=== PATIENT | male | born 1940 | race Caucasian/White ===

== ENCOUNTER 2020-10-04 17:31 | Inpatient (IN) | payer OTHER ==
[~2020-10-04] VITALS: Ht 172.7 cm; Wt 86.2 kg
[2020-10-04 17:41] VITALS: BP 143/83
[2020-10-04 19:00] LABS: BASOPHILS 0.1 % (0.0-2.0); HEMATOCRIT 45.4 % (42.0-52.0); HEMOGLOBIN 15.5 gm/dL (14.0-18.0); LYMPHOCYTES 5.2 % (24.0-44.0); MCH 33.5 pg (26.0-34.0); MCHC 34.1 g/dL (28.0-37.0); MCV 98.5 fL (80.0-100.0); PLATELET COUNT 360 thou/uL (150-400); POLYS 84.7 % (36.0-66.0); RBC 4.61 mil/uL (4.50-6.00); RDW 12.9 % (10.5-14.5); WBC 16.5 thou/uL (4.0-11.0)
[2020-10-04 19:15] LABS: CALCIUM 9.7 mg/dL (8.5-10.1)
[2020-10-04 19:21] LABS: ALBUMIN 3.8 g/dL (3.4-5.0); TOTAL BILIRUBIN 0.5 mg/dL (0.2-1.0); TOTAL PROTEIN 8.6 g/dL (6.4-8.2)
[2020-10-04 21:18] LABS: URINE BILIRUBIN NEGATIVE (Negative); URINE BLOOD NEGATIVE (Negative); URINE CLARITY CLEAR; URINE COLOR YELLOW; URINE GLUCOSE-RANDOM* NEGATIVE (Negative); URINE KETONES NEGATIVE (Negative); URINE LEUKOCYTES-REFLEX NEGATIVE (Negative); URINE NITRITE-REFLEX NEGATIVE (Negative); URINE PROTEIN (DIPSTICK) 1+ (Negative); URINE SPECIFIC GRAVITY 1.025 (1.005-1.035)
[2020-10-04 21:35] LABS: BACTERIA-REFLEX None Seen /HPF (None Seen); CRYSTALS None Seen /LPF (None Seen); HYALINE CASTS 0-3 Few /LPF (None Seen); MUCUS 0-3 Light strn/LPF (None Seen); SQUAMOUS None Seen /LPF (0-3); URINE RBC None Seen /HPF (0-2); URINE WBC-REFLEX None Seen /HPF (0-5)
[2020-10-04 22:08] VITALS: BP 112/64
[2020-10-05 00:08] VITALS: BP 128/74
--- NOTE | 2020-10-05 02:26 | NUR ---
PT REFUSED SCD'S TO BE APPLIED BECAUSE THE HAS NOT SLEPT IN TWO DAYS AND DOES NOT WANT ANYTHING THAT COULD CONTRIBUTE TO HIM NOT BEING ABLE TO SLEEP.
[2020-10-05 08:08] VITALS: BP 100/50
[2020-10-05 08:58] VITALS: BP 100/50
[2020-10-05] MEDS ORDERED: CIPRO500 M1 PO (09:37)
[2020-10-05] MEDS ORDERED: BACTRIM DS TAB1 EAC1 PO (09:38)
[2020-10-05] MEDS ORDERED: KEFLEX500 M1 PO (09:38)
[2020-10-05] MEDS ORDERED: PREDNISONE 5 MG5 MG PO (09:39)
[2020-10-05] MEDS ORDERED: NORVASC 2.5 MG2.5 M1 PO (09:40)
[2020-10-05] MEDS ORDERED: KLOR-CON 10 ER10 MEQ PO (09:40)
[2020-10-05] MEDS ORDERED: PRINIVIL20 M1 PO (09:41)
[2020-10-05] MEDS ORDERED: FLUDROCORTISON0.1 MG PO (09:42)
[2020-10-05] MEDS ORDERED: ALLOPURINOL 10100 M3 PO (09:42)
[2020-10-05] MEDS ORDERED: ZETIA10 MG PO (09:42)
[2020-10-05] MEDS ORDERED: HYDROCHLOROTHIA25 M2 PO (09:43)
[2020-10-05 11:26] VITALS: BP 114/70
[2020-10-05 15:17] VITALS: BP 117/69
--- NOTE | 2020-10-05 17:55 | NUR ---
ASSUMED CARE OF PT ON ARRIVAL TO UNIT. PT ALERT ADN ORIENTED, IN NO ACUTE DISTRESS. REPORTS BILAT LOWER EXT WEKANESS. UP W/ SBA. CALLS APPROPRIATELY. GOOD APPETITE. ROOM AIR. TEMP IMPROVED WITH TYLENOL. COMPLAINS OF PAIN TO BACK AND CHEST FROM FREQUENT COUGHING FITS. ID CONSULTED. WCM.
[2020-10-05 19:07] LABS: ABSOLUTE NEUTROPHILS 9.4 thou/uL (1.4-8.2); WBC 10.4 thou/uL (4.0-11.0)
[2020-10-05 19:10] LABS: BASOPHILS 0.1 % (0.0-2.0); HEMATOCRIT 42.4 % (42.0-52.0); HEMOGLOBIN 14.3 gm/dL (14.0-18.0); MCH 33.3 pg (26.0-34.0); MCHC 33.8 g/dL (28.0-37.0); MCV 98.7 fL (80.0-100.0); MONOCYTES 5.5 % (1.0-8.0); PLATELET COUNT 322 thou/uL (150-400); POLYS 90.4 % (36.0-66.0); RDW 13.4 % (10.5-14.5)
[2020-10-05 19:28] LABS: ALBUMIN 2.8 g/dL (3.4-5.0); CALCIUM 8.9 mg/dL (8.5-10.1); CREATININE 1.4 mg/dL (0.7-1.3); MAGNESIUM 1.8 mg/dL (1.8-2.4); POTASSIUM 3.9 mmol/L (3.5-5.1); TOTAL BILIRUBIN 0.5 mg/dL (0.2-1.0); TOTAL PROTEIN 7.2 g/dL (6.4-8.2)
[2020-10-05 19:30] VITALS: BP 120/74
[2020-10-06 03:39] VITALS: BP 115/67
--- NOTE | 2020-10-06 05:00 | NUR ---
PT MAKING PROGRESS TOWARDS GOALS. ON ROOM AIR THROUGHOUT THE NIGHT. DENIED ANY SOA WHILE AT REST. LUNG CTA. SEE CHARTING. OCCASIONAL WET BUT NON-PRODUCTIVE COUGH.
[2020-10-06 05:41] LABS: ABSOLUTE NEUTROPHILS 8.5 thou/uL (1.4-8.2); BASOPHILS 0.1 % (0.0-2.0); HEMATOCRIT 40.1 % (42.0-52.0); HEMOGLOBIN 13.9 gm/dL (14.0-18.0); LYMPHOCYTES 5.3 % (24.0-44.0); MCH 34.2 pg (26.0-34.0); MCHC 34.6 g/dL (28.0-37.0); MCV 98.7 fL (80.0-100.0); MONOCYTES 6.1 % (1.0-8.0); PLATELET COUNT 327 thou/uL (150-400); POLYS 88.5 % (36.0-66.0); RBC 4.06 mil/uL (4.50-6.00); RDW 13.1 % (10.5-14.5); WBC 9.6 thou/uL (4.0-11.0)
[2020-10-06 06:01] LABS: ALBUMIN 2.6 g/dL (3.4-5.0); ANION GAP 12 mmol/L (7-16); BUN 24 mg/dL (7-18); CALCIUM 8.5 mg/dL (8.5-10.1); CHLORIDE 99 mmol/L (98-107); CO2 23 mmol/L (21-32); CREATININE 1.3 mg/dL (0.7-1.3); DIRECT BILIRUBIN < 0.1 mg/dL (<0.1-0.2); GLUCOSE 161 mg/dL (74-106); PHOSPHORUS 2.7 mg/dL (2.5-4.9); POTASSIUM 3.9 mmol/L (3.5-5.1); SGOT 20 U/L (15-37); SGPT 29 U/L (30-65); SODIUM 134 mmol/L (136-145); TOTAL BILIRUBIN 0.3 mg/dL (0.2-1.0); TOTAL PROTEIN 6.9 g/dL (6.4-8.2)
[2020-10-06 07:31] LABS: INR 1.1; PROTIME 10.9 Seconds (9.3-11.4)
--- NOTE | 2020-10-06 08:51 | EKG ---
[address] [address] ELECTROCARDIOGRAM REPORT Name: TONIE VITALE Room #: 352-P ADM IN M.R.#: [id number] Admission: 10/04/20 Attend Phys: Denys Elkins MD Discharge: Date of : 44 Report #: [id number] [facility] ED Test Date: 2020-10-04 Test Time: 19:43:09 Pat Name: TONIE VITALE Department: Room: [facility] Gender: M Cardio Clinician: everardo : 1940 Requested By: Rg Page Order Number: [id number] : Carlin Justin Measurements Intervals [place] Rate: 95 P: 41 WY: 178 QRS: 49 QRSD: 86 T: 50 QT: 337 QTc: 424 Interpretive Statements Sinus tachycardia No previous ECG available for comparison Electronically Signed On 10-06-2020 8:51:00 FOOT CASTER by Carlin Justin [email or web address] <ELECTRONICALLY SIGNED> By: Carlin Justin MD, [facility] 10/06/20 0851 42 42 Carlin Justin MD, FACC /EPI
[2020-10-06 08:52] VITALS: BP 140/75
[2020-10-06 11:18] VITALS: BP 133/79
[2020-10-06 15:14] VITALS: BP 140/84
--- NOTE | 2020-10-06 18:11 | NUR ---
ASSUMED PATIENT CARE AT 0700. A/0 X4. RA. ROYERRESS NOTED. VSS. PROGRESSSING TOWARDS POC GOALS.
[2020-10-06 20:25] VITALS: BP 158/77
--- NOTE | 2020-10-06 21:16 | HC ---
[facility] [address] [place] [address] CONSULTATION Name: TONIE VITALE Room #: 352-P ADM IN M.R.#: [id number] Admission: 10/04/20 Attend Phys: Denys Elkins MD Discharge: Date of : 44 Report #: [id number] THIS REPORT FOR: cc: FAM - No family physician/PCP FAM - No family physician/PCP Rohan Reid MD ~ DATE OF SERVICE: 10/05/2020 INFECTIOUS DISEASES CONSULTATION REASON FOR CONSULTATION: I was asked to evaluate concerning COVID-19 infection. HISTORY OF PRESENT ILLNESS: The patient is a 80-year-old admitted through the Emergency Room on 10/04/2020 with progressive shortness of breath, chills, fever, malaise, nonproductive cough. Started last week and he was COVID-19 tested positive on 09/27/2020. He was given outpatient antibiotic therapy without improvement. He continued to run fever. Has had a headache, myalgias, and arthralgias. No loss of taste or smell. He has had some diarrhea initially, but that is stabilized. He is anorexic. No previous history of pneumonia. He does have COPD. 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 REVIEW OF SYSTEMS: A 14-point review of systems was negative other than what has been described above. ALLERGIES: VALIUM. MEDICATIONS: As noted on his MAR, which were reviewed. He is currently on corticosteroids, antibiotic therapy, and remdesivir. PAST MEDICAL HISTORY: Hypertension, gout, hyperlipidemia, COPD, tonsillectomy, appendectomy, cholecystectomy, and herniorrhaphy. FAMILY HISTORY: No report of tuberculosis. SOCIAL HISTORY: Nonsmoker, no significant alcohol intake. PHYSICAL EXAMINATION: GENERAL: He was afebrile and hemodynamically stable. He is alert and cooperative and pleasant. He was in no acute distress, lying in bed. He did become dyspneic as we talked more about his history. Oxygen saturation was at 94%, resting. SKIN: Without rash or decubitus. No palpable adenopathy. He was of normal weight. HEENT: Eyes without scleral icterus or conjunctivitis. Mouth without mucositis. [address] [address] CONSULTATION Name: TONIE VITALE Room #: 352-P ADM IN M.R.#: [id number] Admission: 10/04/20 Attend Phys: Denys Elkins MD Discharge: Date of : 44 Report #: [id number] NECK: Supple. LUNGS: Few crackles in the bases bilaterally with no consolidation. HEART: Regular, without murmur, gallop, or rub. ABDOMEN: Soft and nontender with no hepatosplenomegaly or mass appreciated. He was mildly protuberant. EXTREMITIES: Without clubbing, cyanosis, or edema. NEUROLOGIC: Cranial nerves intact. Strength in his upper and lower extremities was within normal limits and symmetric. Mood without anxiety or depression. BACK: Nontender. GENITAL AND RECTAL: Not performed. LABORATORY STUDIES: Reviewed. MICROBIOLOGY: Reviewed. RADIOLOGICAL STUDIES: Chest x-ray reviewed. IMPRESSION: A 80-year-old with underlying chronic obstructive pulmonary disease, hypertension, presents with COVID-19 infection associated pneumonia. He does have hypoxia with O2 saturation to 94% on room air. He has acute kidney injury. RECOMMENDATIONS: The patient is at risk for further progression of disease. Recommend full combination antiviral therapy. Continue to monitor oxygen requirements. He will remain on the COVID Isolation Unit for cardiopulmonary monitoring. I have discussed with nursing staff. <ELECTRONICALLY SIGNED> By: Rohan Reid MD 10/06/202115 08 19 Rohan Reid MD /nt
[2020-10-07 04:30] VITALS: BP 139/7; BP 139/75
[2020-10-07 06:46] LABS: ALBUMIN 2.4 g/dL (3.4-5.0); ANION GAP 12 mmol/L (7-16); BUN 24 mg/dL (7-18); CALCIUM 8.9 mg/dL (8.5-10.1); CHLORIDE 99 mmol/L (98-107); CO2 23 mmol/L (21-32); CREATININE 1.1 mg/dL (0.7-1.3); DIRECT BILIRUBIN < 0.1 mg/dL (<0.1-0.2); GLUCOSE 161 mg/dL (74-106); PHOSPHORUS 3.1 mg/dL (2.5-4.9); POTASSIUM 3.6 mmol/L (3.5-5.1); SGOT 25 U/L (15-37); SGPT 35 U/L (30-65); SODIUM 134 mmol/L (136-145); TOTAL BILIRUBIN 0.3 mg/dL (0.2-1.0); TOTAL PROTEIN 6.5 g/dL (6.4-8.2)
[2020-10-07 07:18] VITALS: BP 154/91
[2020-10-07 15:15] VITALS: BP 152/84
--- NOTE | 2020-10-07 15:23 | NUR ---
INITIAL ASSESSMENT: JACKLYN reviewed chart and spoke with nursing and attending physician. Pt was admitted from home due to sepsis. Pt placed in Enhanced Isolation due to COVID-19. Pt had positive COVID test on 09/27 at his PCP's office in [place]. Pt is afebrile and not requiring O2. Pt is on IV abx and IV steroids. Pt completed course of Ivermectin and is completing course of Remdesivir. SW spoke with pt via phone. Introduced role of SW. Pt is alert/orientated x 4. Pt reports he lives at home in [place]. Prior to admission, pt was independent with ADLs. 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 No use of DME. No hx of services or post-acute placement. Pt has a new PCP and has been seen JEWELRY CASTING MODEL MAKER APPRENTICE, Lacie Wood at the PCP office. Pt's goal is to return home when medically stable. Pt with questions about his diet. JACKLYN discussed with nursing, who will follow up with pt. JACKLYN is following to assist as needed with discharge planning.
[2020-10-07 19:18] VITALS: BP 148/89
[2020-10-08 03:46] VITALS: BP 138/75
--- NOTE | 2020-10-08 06:18 | NUR ---
FOLLOWING POC WITH IVF AND IVPB ANTIBIOTICS. PT A/OX4 AND NOT ON TELE. OVERNIGHT NO COMPLAINTS FROM PT. HOURLY ROUNDING.
[2020-10-08 06:30] LABS: ALBUMIN 2.2 g/dL (3.4-5.0); ANION GAP 13 mmol/L (7-16); BUN 27 mg/dL (7-18); CALCIUM 8.4 mg/dL (8.5-10.1); CHLORIDE 101 mmol/L (98-107); CO2 23 mmol/L (21-32); DIRECT BILIRUBIN < 0.1 mg/dL (<0.1-0.2); GLUCOSE 164 mg/dL (74-106); PHOSPHORUS 3.6 mg/dL (2.5-4.9); POTASSIUM 3.6 mmol/L (3.5-5.1); SGOT 24 U/L (15-37); SGPT 32 U/L (30-65); SODIUM 137 mmol/L (136-145); TOTAL BILIRUBIN 0.2 mg/dL (0.2-1.0); TOTAL PROTEIN 6.1 g/dL (6.4-8.2)
[2020-10-08 07:26] VITALS: BP 149/87
--- NOTE | 2020-10-08 14:23 | NUR ---
SW reviewed chart and spoke with nursing and attending physician. Pt remains in Enhanced Isolation due to COVID-19. Pt is afebrile and not requiring O2. Pt is on IV abx and IV steroids. Pt to complete course of Remdesivir tomorrow. Discharge plan is for pt to return home. No discharge needs identified at this time. JACKLYN is following to assist as needed with discharge planning.
[2020-10-08 15:27] VITALS: BP 130/70
[2020-10-08 19:36] VITALS: BP 154/81
[2020-10-09 04:05] VITALS: BP 142/77
[2020-10-09 07:07] VITALS: BP 137/85
[2020-10-09 07:15] LABS: ALBUMIN 2.2 g/dL (3.4-5.0); ANION GAP 8 mmol/L (7-16); BUN 27 mg/dL (7-18); CALCIUM 8.4 mg/dL (8.5-10.1); CHLORIDE 98 mmol/L (98-107); CO2 25 mmol/L (21-32); DIRECT BILIRUBIN < 0.1 mg/dL (<0.1-0.2); GLUCOSE 149 mg/dL (74-106); SGOT 37 U/L (15-37); SGPT 38 U/L (16-63); SODIUM 131 mmol/L (136-145); TOTAL BILIRUBIN 0.3 mg/dL (0.2-1.0); TOTAL PROTEIN 5.8 g/dL (6.4-8.2)
[2020-10-09 07:17] LABS: POTASSIUM 4.1 mmol/L (3.5-5.1)
--- NOTE | 2020-10-09 13:08 | NUR ---
Pt seen for LOS. Pt with fair appetite, eating ~50% of meals. 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 Pt with no c/o GI distress, last BM 10/08. No PU noted, skin intact. Pt remains low nutrition risk.
[2020-10-09] MEDS ORDERED: ACEROLA C500 MG PO (13:15)
[2020-10-09] MEDS ORDERED: ADULT TUSS100 MG/5 M PO (13:15)
[2020-10-09] MEDS ORDERED: MELATONIN5 M1 PO (13:15)
[2020-10-09] MEDS ORDERED: ACETAMINOPHEN-CO5 ML PO (13:15)
[2020-10-09] MEDS ORDERED: VITAMIN D325 MC1 PO (13:15)
[2020-10-09] MEDS ORDERED: ACETAMINOPHEN325 M1 PO (13:15)
[2020-10-09] MEDS ORDERED: PREDNISONE 5 MG5 MG PO (13:15)
[2020-10-09] MEDS ORDERED: CEFUROXIME500 MG PO (13:15)
[2020-10-09] MEDS ORDERED: PEPCID20 MG PO (13:15)
[2020-10-09 14:01] VITALS: BP 137/85
[2020-10-09 14:07] VITALS: BP 137/85
--- NOTE | 2020-10-09 14:09 | NUR ---
DISCHARGE NOTE: SW reviewed chart and spoke with nursing and attending physician. Pt remains in Enhanced Isolation due to COVID-19. Pt is medically stable to discharge home today. Orders written for HH. SW spoke with pt via phone to discuss discharge plan. SW notified pt of HH orders. Pt declines HH and states he does not feel that he needs it. Pt will have transportation home this afternoon. SW updated nursing. No additional SW needs identified at this time, but is available to assist should needs arise.
[2020-10-09 14:21] VITALS: BP 137/85
[2020-10-09 15:50] VITALS: BP 137/85
== END 2020-10-09 16:08 | disposition home or self-care (01) | DRG 871 ==
LOC: ER 17:31 → 3W 22:17 → EROBS 22:17 → 3W 10-05 09:12
PROVIDERS: Emergency Medicine; Internal Medicine; Specialist; ADMIT Hospitalist; ATTEND Hospitalist
PROC: XW033E5 Introduction of Remdesivir Anti-infective into Peripheral Vein, Percutaneous Approach, New Technology Group 5 (ICD-10-PCS; principal; 2020-10-05)
DX: A41.89 Other specified sepsis (principal); U07.1 COVID-19; J12.9 Viral pneumonia, unspecified; N17.0 Acute kidney failure with tubular necrosis; J44.0 Chronic obstructive pulmonary disease with (acute) lower respiratory infection; J44.1 Chronic obstructive pulmonary disease with (acute) exacerbation; I10 Essential (primary) hypertension; E78.5 Hyperlipidemia, unspecified; M10.9 Gout, unspecified; Z79.899 Other long term (current) drug therapy; Z90.49 Acquired absence of other specified parts of digestive tract; Z88.8 Allergy status to other drugs, medicaments and biological substances
CPT/HCPCS: 10779; 10879